=== PATIENT | female | born 1975 ===

== ENCOUNTER 2018-04-18 09:19 | Inpatient (IN) | payer BC, MEDICAID ==
[2018-04-18 09:25] VITALS: BMI 27.4
[2018-04-18] MEDS ORDERED: Sodium Chloride 0.9% 1,000 ML IV ONE (10:04)
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
[2018-04-18] MEDS ORDERED: Sodium Chloride 0.9% 1,000 ML ONE (10:22)
[2018-04-18 10:33] LABS: BASO % 0.3 % (0.0-2.0); EOS % 0.4 % (0.0-4.0); LYMPH # 1.2 K/uL (1.0-4.3); LYMPH % 10.3 % (20.0-40.0); MEAN CELL VOLUME 89.1 fL (81.0-99.0); MEAN CORPUSCULAR HEMOGLOBIN 30.8 pg (27.0-31.0); MEAN CORPUSCULAR HGB CONC 34.5 g/dL (33.0-37.0); MEAN PLATELET VOLUME 9.1 fL (7.2-11.7); MONO # 0.5 K/uL (0.0-0.8); MONO % 4.4 % (0.0-10.0); NEUT # 9.6 K/uL (1.8-7.0); NEUT % 84.6 % (50.0-75.0); RBC 4.56 Mil/uL (3.80-5.20); RED CELL DISTRIBUTION WIDTH 13.1 % (11.5-14.5); WHITE BLOOD COUNT 11.4 K/uL (4.8-10.8)
[2018-04-18 10:48] LABS: ALB/GLOB RATIO 1.1 (1.0-2.1); ALBUMIN 3.9 g/dL (3.5-5.0); ALT/SGPT 36 U/L (9-52); AST/SGOT 30 U/L (14-36); BLOOD UREA NITROGEN 18 mg/dL (7-17); CALCIUM 8.8 mg/dl (8.6-10.4); GFR AFRICAN-AMERICAN > 60; GFR NON-AFRICAN AMERICAN > 60
--- NOTE | 2018-04-18 11:46 | CT ---
PROCEDURE: CT HEAD WITHOUT CONTRAST. HISTORY: pain COMPARISON: None available. TECHNIQUE: Axial computed tomography images were obtained through the head/brain without intravenous contrast. Radiation dose: Total exam DLP = 796.51 mGy-cm. This CT exam was performed using one or more of the following dose reduction techniques: Automated exposure control, adjustment of the mA and/or kV according to patient size, and/or use of iterative reconstruction technique. FINDINGS: HEMORRHAGE: No intracranial hemorrhage. BRAIN: Normal lee-white matter differentiation and density are appreciated throughout the cerebrum and cerebellum with the brainstem appearing unremarkable as well. There is no mass effect. There is no suspicious extra-axial fluid collection and the midline brain anatomy appears diffusely unremarkable. VENTRICLES: Unremarkable. No hydrocephalus. CALVARIUM: Unremarkable. PARANASAL SINUSES: Unremarkable as visualized. No significant inflammatory changes. MASTOID AIR CELLS: Unremarkable as visualized. No inflammatory changes. OTHER FINDINGS: None. IMPRESSION: Unremarkable unenhanced head CT.
[2018-04-18 11:49] LABS: HCG,QUALITATIVE URINE NEGATIVE (NEGATIVE)
[2018-04-18 11:55] LABS: SQUAMOUS EPITHIAL 1 /hpf (0-5); URINE BILIRUBIN NEGATIVE (NEGATIVE); URINE BLOOD NEGATIVE (NEGATIVE); URINE CLARITY Hazy (Clear); URINE COLOR Yellow (YELLOW); URINE GLUCOSE (UA) NORMAL (Normal); URINE LEUKOCYTE ESTERASE NEG Leu/uL (Negative); URINE PROTEIN NEGATIVE (NEGATIVE); URINE UROBILINOGEN NORMAL mg/dL (0.2-1.0)
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
[2018-04-19] MEDS ORDERED: Gadodiamide 287 mg/ml 20 ml IV ONE (09:15)
--- NOTE | 2018-04-19 10:50 | MRI ---
PROCEDURE: MRI BRAIN WITH AND WITHOUT CONTRAST HISTORY: concussions COMPARISON: Unenhanced head CT 04/18/2018. TECHNIQUE: Multiplanar, multisequence MR images of the brain were obtained with and without intravenous contrast enhancement. FINDINGS: HEMORRHAGE: None DWI: No evidence of an acute or early subacute infarction. BRAIN PARENCHYMA: There is a solitary punctate nonenhancing long TR hyperintensity of the right parietal lobe of uncertain origin and clinical significance. The remainder of the white matter above below the tentorium is normal in signal including the corpus callosum. Normal corticomedullary differentiation is appreciated throughout and there is no mass effect or suspicious extra-axial fluid collection identified. Midline brain and appears within normal limits throughout. Craniocervical junction is intact. ENHANCEMENT: No abnormal intracranial enhancement. VENTRICLES: Unremarkable. No hydrocephalus. CRANIUM: Unremarkable. ORBITS: Grossly unremarkable. PARANASAL SINUSES/MASTOIDS: Clear VASCULAR SYSTEM: Skull base flow voids intact. OTHER FINDINGS: None . IMPRESSION: A solitary punctate long TR hyperintensities identified in the right parietal lobe of uncertain origin and significance. No additional signal abnormality is seen throughout the brain and there is no abnormal intracranial enhancement evident either.
--- NOTE | 2018-04-19 13:42 | CP.PCM.PN ---
Subjective - Date & Time of Evaluation Date of Evaluation: 04/19/18 Time of Evaluation: 13:40 - Subjective Subjective: CHIEF COMPLAINTS TODAY : Patient is still complaining of headache dizziness especially on ambulation. ROS. HEENT : N. Resp : No cough, wheezing ,pleuritic CP ,or hemoptysis Cardio : No anginal CP, PND, orthopnea, palpitation GI : No abd.pain, n/v ,diarrhea or GI bleeding . 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 Musculoskel : No joint swelling , Derm : No rash Psych : Normal affect. Ext : No swelling ,calf pain PE. Pt. is alert awake in no distress. V.S As noted in the chart Head ,ear nose,throat and eyes : Normal. Neck : Supple with normal carotids. Lungs: Clear air entry. Heart : S1 & S2 normal with S4. No murmur. Abd : Soft non tender with normal bowel sounds. Neuro : Moves all ext. with no localized deficit. Ext : No edema with intact pulses.Non tender calves Derm : No rashes or decubitus ulcer. LABS/RADIOLOGY: MRI of the brain does not show any acute pathology ASSESSMENT/PLAN : Cerebral concussion, still symptomatic observe for another 24 hours. Objective - Vital Signs/Intake and Output Vital Signs (last 24 hours): Temp Pulse Resp BP Pulse Ox 98.2 F 61 20 115/71 97 04/19/18 08:28 04/19/18 08:28 04/19/18 08:28 04/19/18 08:28 04/19/18 08:28 Intake and Output: 04/19/18 04/19/18 11:59 23:59 Intake Total 750 Balance 750 - Medications Medications: Current Medications Acetaminophen (Tylenol 325mg Tab) 650 mg PO Q6 PRN PRN Reason: Headache Dextrose (Dextrose 5% In Water 1000 Ml) 1,000 mls @ 100 mls/hr IV .Q10H [facility] Last Admin: 04/19/18 04:09 Dose: Not Given - Labs Labs: 04/18/18 10:29 04/18/18 10:29
[2018-04-20 00:25] VITALS: RESP 20
--- NOTE | 2018-04-20 03:07 | CARD ---
APPROVED REPORT EKG Measurement Heart [id number] <Conclusion> Normal sinus rhythm Normal ECG
--- NOTE | 2018-04-20 14:21 | CP.PCM.PN ---
Subjective - Date & Time of Evaluation Date of Evaluation: 04/20/18 Time of Evaluation: 14:20 - Subjective Subjective: Patient is still complaining of headache dizziness especially on ambulation. ROS. HEENT : N. Resp : No cough, wheezing ,pleuritic CP ,or hemoptysis Cardio : No anginal CP, PND, orthopnea, palpitation GI : No abd.pain, n/v ,diarrhea or GI bleeding . RADIO RECORDER : No focal deficit. Musculoskel : No joint swelling , Derm : No rash Psych : Normal affect. Ext : No swelling ,calf pain PE. Pt. is alert awake in no distress. V.S As noted in the chart Head ,ear nose,throat and eyes : Normal. Neck : Supple with normal carotids. Lungs: Clear air entry. Heart : S1 & S2 normal with S4. No murmur. Abd : Soft non tender with normal bowel sounds. Neuro : Moves all ext. with no localized deficit. Ext : No edema with intact pulses.Non tender calves Derm : No rashes or decubitus ulcer. LABS/RADIOLOGY: MRI of the brain does not show any acute pathology ASSESSMENT/PLAN : Cerebral concussion, still symptomatic observe for another 24 hours. Objective - Vital Signs/Intake and Output Vital Signs (last 24 hours): Temp Pulse Resp BP Pulse Ox 98.3 F 60 20 113/71 99 04/20/18 00:21 04/20/18 00:21 04/20/18 00:21 04/20/18 00:21 04/20/18 00:21 Intake and Output: 04/20/18 04/20/18 11:59 23:59 Intake Total 1160 Balance 1160 - Medications Medications: Current Medications Acetaminophen (Tylenol 325mg Tab) 650 mg PO Q6 PRN PRN Reason: Headache Last Admin: 04/20/18 00:35 Dose: 650 mg Dextrose (Dextrose 5% In Water 1000 Ml) 1,000 mls @ 100 mls/hr IV .Q10H [facility] Last Admin: 04/20/18 12:00 Dose: Not Given Pneumococcal Polyvalent Vaccine (Pneumovax 23 Vaccine) 0.5 ml IM .ONCE ONE Stop: 04/21/18 10:01 - Labs Labs: 04/18/18 10:29 04/18/18 10:29
[2018-04-21] MEDS ORDERED: Pneumococcal 23-Valent Vaccine IM ONE (10:00)
--- NOTE | 2018-04-21 15:34 | CP.PCM.PN ---
Subjective - Date & Time of Evaluation Date of Evaluation: 04/21/18 Time of Evaluation: 15:32 - Subjective Subjective: Chart reviewed and blood test results noted. Discussed with the nurse, patient is still feeling very lightheaded on walking. As per the physical therapy patient will need rehab. We will arrange for the rehab on Sunday Objective - Vital Signs/Intake and Output Vital Signs (last 24 hours): Temp Pulse Resp BP Pulse Ox 98 F 60 20 101/64 97 04/20/18 23:56 04/20/18 23:56 04/20/18 23:56 04/20/18 23:56 04/20/18 23:56 Intake and Output: 04/21/18 04/21/18 11:59 23:59 Intake Total 1250 Balance 1250 - Medications Medications: Current Medications Acetaminophen (Tylenol 325mg Tab) 650 mg PO Q6 PRN PRN Reason: Headache Last Admin: 04/21/18 12:46 Dose: 650 mg - Labs Labs: 04/18/18 10:29 04/18/18 10:29
--- NOTE | 2018-04-22 14:30 | CP.PCM.PN ---
Subjective - Date & Time of Evaluation Date of Evaluation: 04/22/18 Time of Evaluation: 14:29 - Subjective Subjective: Patient is still complaining of headache dizziness especially on ambulation. ROS. HEENT : N. Resp : No cough, wheezing ,pleuritic CP ,or hemoptysis Cardio : No anginal CP, PND, orthopnea, palpitation GI : No abd.pain, n/v ,diarrhea or GI bleeding . 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 Musculoskel : No joint swelling , Derm : No rash Psych : Normal affect. Ext : No swelling ,calf pain PE. Pt. is alert awake in no distress. V.S As noted in the chart Head ,ear nose,throat and eyes : Normal. Neck : Supple with normal carotids. Lungs: Clear air entry. Heart : S1 & S2 normal with S4. No murmur. Abd : Soft non tender with normal bowel sounds. Neuro : Moves all ext. with no localized deficit. Ext : No edema with intact pulses.Non tender calves Derm : No rashes or decubitus ulcer. LABS/RADIOLOGY: MRI of the brain does not show any acute pathology ASSESSMENT/PLAN : patient will need short- term rehab. Objective - Vital Signs/Intake and Output Vital Signs (last 24 hours): Temp Pulse Resp BP Pulse Ox 98.2 F 70 20 96/59 L 98 04/22/18 07:21 04/22/18 07:21 04/22/18 07:21 04/22/18 07:21 04/22/18 07:21 Intake and Output: 04/22/18 04/22/18 11:59 23:59 Intake Total 200 Balance 200 - Medications Medications: Current Medications Acetaminophen (Tylenol 325mg Tab) 650 mg PO Q6 PRN PRN Reason: Headache Last Admin: 04/22/18 10:50 Dose: 650 mg - Labs Labs: 04/18/18 10:29 04/18/18 10:29
--- NOTE | 2018-04-23 13:43 | CP.PCM.PN ---
Subjective - Date & Time of Evaluation Date of Evaluation: 04/23/18 Time of Evaluation: 13:42 - Subjective Subjective: Patient is still complaining of headache dizziness especially on ambulation. ROS. HEENT : N. Resp : No cough, wheezing ,pleuritic CP ,or hemoptysis Cardio : No anginal CP, PND, orthopnea, palpitation GI : No abd.pain, n/v ,diarrhea or GI bleeding . 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 Musculoskel : No joint swelling , Derm : No rash Psych : Normal affect. Ext : No swelling ,calf pain PE. Pt. is alert awake in no distress. V.S As noted in the chart Head ,ear nose,throat and eyes : Normal. Neck : Supple with normal carotids. Lungs: Clear air entry. Heart : S1 & S2 normal with S4. No murmur. Abd : Soft non tender with normal bowel sounds. Neuro : Moves all ext. with no localized deficit. Ext : No edema with intact pulses.Non tender calves Derm : No rashes or decubitus ulcer. LABS/RADIOLOGY: MRI of the brain does not show any acute pathology ASSESSMENT/PLAN : patient will need short- term rehab. Objective - Vital Signs/Intake and Output Vital Signs (last 24 hours): Temp Pulse Resp BP Pulse Ox 98.3 F 64 20 102/62 98 04/23/18 08:35 04/23/18 08:35 04/23/18 08:35 04/23/18 08:35 04/23/18 08:35 Intake and Output: 04/23/18 04/23/18 11:59 23:59 Intake Total 240 Balance 240 - Medications Medications: Current Medications Acetaminophen (Tylenol 325mg Tab) 650 mg PO Q6 PRN PRN Reason: Headache Last Admin: 04/22/18 10:50 Dose: 650 mg - Labs Labs: 04/18/18 10:29 04/18/18 10:29
[2018-04-23] MEDS ORDERED: Apap-Butalbital-Caffeine 325-50-40mg Tab PO STA (18:15)
[2018-04-23] MEDS ORDERED: Apap-Butalbital-Caffeine 325-50-40mg Tab PO PRN (18:15)
[2018-04-24] MEDS: Sodium Chloride 0.9% 1,000 ML IV SCH ×2 (08:40→17:45)
--- NOTE | 2018-04-24 13:54 | CP.PCM.PN ---
Subjective - Date & Time of Evaluation Date of Evaluation: 04/24/18 Time of Evaluation: 13:53 - Subjective Subjective: Patient is still complaining of headache dizziness especially on ambulation. ROS. HEENT : N. Resp : No cough, wheezing ,pleuritic CP ,or hemoptysis Cardio : No anginal CP, PND, orthopnea, palpitation GI : No abd.pain, n/v ,diarrhea or GI bleeding . 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 Musculoskel : No joint swelling , Derm : No rash Psych : Normal affect. Ext : No swelling ,calf pain PE. Pt. is alert awake in no distress. V.S As noted in the chart Head ,ear nose,throat and eyes : Normal. Neck : Supple with normal carotids. Lungs: Clear air entry. Heart : S1 & S2 normal with S4. No murmur. Abd : Soft non tender with normal bowel sounds. Neuro : Moves all ext. with no localized deficit. Ext : No edema with intact pulses.Non tender calves Derm : No rashes or decubitus ulcer. LABS/RADIOLOGY: MRI of the brain does not show any acute pathology ASSESSMENT/PLAN : patient will need short- term rehab. AWAITING NEURO EVAL Objective - Vital Signs/Intake and Output Vital Signs (last 24 hours): Temp Pulse Resp BP Pulse Ox 98.6 F 64 20 108/70 99 04/24/18 08:00 04/24/18 08:00 04/24/18 08:00 04/24/18 08:00 04/24/18 08:00 Intake and Output: 04/24/18 04/24/18 11:59 23:59 Intake Total 200 Balance 200 - Medications Medications: Current Medications Acetaminophen (Tylenol 325mg Tab) 650 mg PO Q6 PRN PRN Reason: Headache Last Admin: 04/23/18 15:01 Dose: 650 mg Acetaminophen/Butalbital/Caffeine (Fioricet) 1 tab PO Q4 PRN PRN Reason: Pain, severe (8-10) Sodium Chloride (Sodium Chloride 0.9%) 1,000 mls @ 100 mls/hr IV .Q10H [facility] Last Admin: 04/24/18 08:40 Dose: 100 mls/hr Meclizine HCl (Antivert) 25 mg PO QD7 [facility] Last Admin: 04/23/18 18:39 Dose: 25 mg - Labs Labs: 04/18/18 10:29 04/18/18 10:29
[2018-04-24 15:20] LABS: FOLATE > 20.0 ng/mL
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
[2018-04-24] MEDS ORDERED: Iodixanol 320 MG/ML 100 ML BOTTLE IV ONE (20:05)
[2018-04-25] MEDS: Sodium Chloride 0.9% 1,000 ML IV SCH ×2 (03:45→14:30)
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
--- NOTE | 2018-04-25 11:23 | CT ---
PROCEDURE: CTA HEAD AND NECK WITH CONTRAST HISTORY: r/o vertebral artery dissection COMPARISON: None available. TECHNIQUE: Initial noncontrast head CT was performed. Subsequently, CT angiogram of the head and neck were performed after the intravenous administration of 80 mL of Omnipaque 350. Contiguous 1.5mm thick images were obtained in the axial plane of the neck. 2-D coronal and sagittal MPR images were obtained. Imaging postprocessing was performed with 3-D images also obtained. A delayed contrast head CT was also obtained. This CT exam was performed using one or more of the following dose reduction techniques: Automated exposure control, adjustment of the mA and/or kV according to patient size, and/or use of iterative reconstruction technique. Contrast dose: 100 mL Visipaque 320 Radiation dose: Total exam DLP = 550.30 mGy-cm. FINDINGS: HEAD: Right: The intracranial internal carotid artery, and anterior and middle cerebral arteries are widely patent. Left: The intracranial internal carotid artery, and anterior and middle cerebral arteries are widely patent. Posterior circulation: The visualized intracranial vertebral arteries, basilar artery and posterior cerebral arteries are widely patent. Ther is no endoluminal filling defect to suggest thrombus. There is no intracranial saccular aneurysm. There is no abnormal enhancement on the postcontrast CT. NECK: There is a three vessel aortic arch. There is no stenosis at the origins of the great vessels at the level of the aortic arch. Right Carotid: On the right, the common carotid, internal carotid and external carotid arteries are widely patent. There is no hemodynamically significant stenosis in the internal carotid artery by NASCET criteria. Left Carotid: On the left, the common carotid, internal carotid and external carotid arteries are widely patent. There is no hemodynamically significant stenosis in the internal carotid artery by NASCET criteria. The vertebral arteries are widely patent. The right vertebral artery is hypoplastic, an anatomic variant. The visualized soft tissues of the neck are normal. The visualized brain and cervical spine are within normal limits. The lung apices are clear. IMPRESSION: 1. The right vertebral artery is hypoplastic, an anatomic variant. No definite evidence for vertebral artery dissection. 2. No evidence of occlusion, stenosis, intra arterial thrombus or saccular aneurysm. 3. No evidence of hemodynamically significant stenosis in the internal carotid arteries. A preliminary report was provided by [facility].
--- NOTE | 2018-04-25 13:56 | CP.PCM.PN ---
Subjective - Date & Time of Evaluation Date of Evaluation: 04/25/18 Time of Evaluation: 13:55 - Subjective Subjective: Patient is still complaining of headache dizziness especially on ambulation. ROS. HEENT : N. Resp : No cough, wheezing ,pleuritic CP ,or hemoptysis Cardio : No anginal CP, PND, orthopnea, palpitation GI : No abd.pain, n/v ,diarrhea or GI bleeding . MANAGER GENERATION : No focal deficit. Musculoskel : No joint swelling , Derm : No rash Psych : Normal affect. Ext : No swelling ,calf pain PE. Pt. is alert awake in no distress. V.S As noted in the chart Head ,ear nose,throat and eyes : Normal. Neck : Supple with normal carotids. Lungs: Clear air entry. Heart : S1 & S2 normal with S4. No murmur. Abd : Soft non tender with normal bowel sounds. Neuro : Moves all ext. with no localized deficit. Ext : No edema with intact pulses.Non tender calves Derm : No rashes or decubitus ulcer. LABS/RADIOLOGY: MRI of the brain does not show any acute pathology. CTA of the neck shows no vascular injury or stenosis ASSESSMENT/PLAN : patient will need short- term rehab. Valium and aspirin as per neurology Objective - Vital Signs/Intake and Output Vital Signs (last 24 hours): Temp Pulse Resp BP Pulse Ox 98.3 F 68 20 101/63 100 04/25/18 08:14 04/25/18 08:14 04/25/18 08:14 04/25/18 08:14 04/25/18 08:14 Intake and Output: 04/25/18 04/25/18 11:59 23:59 Intake Total 1000 Balance 1000 - Medications Medications: Current Medications Acetaminophen (Tylenol 325mg Tab) 650 mg PO Q6 PRN PRN Reason: Headache Last Admin: 04/23/18 15:01 Dose: 650 mg Aspirin (Ecotrin) 81 mg PO DAILY [facility] Last Admin: 04/25/18 10:41 Dose: 81 mg Diazepam (Valium) 2 mg PO Q8 PRN PRN Reason: Dizziness Sodium Chloride (Sodium Chloride 0.9%) 1,000 mls @ 100 mls/hr IV .Q10H [facility] Last Admin: 04/25/18 03:45 Dose: Not Given Meclizine HCl (Antivert) 25 mg PO QD7 [facility] Last Admin: 04/23/18 18:39 Dose: 25 mg - Labs Labs: 04/18/18 10:29 04/18/18 10:29
[2018-04-25 16:55] VITALS: BP 123/74; PULSE 71; TEMP 98.4; O2SAT 99
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
== END 2018-04-25 18:35 | disposition home or self-care (01) | DRG 149 ==
LOC: C.ER 09:19 → C.3T 14:50 → INTOOBSV 14:50 → UNDOADMOB 14:50 → OBSVTOIN 16:31 → INTOOBSV 16:31 → C.3T 04-21 16:31 → OBSVTOIN 04-21 16:31 → C.3T 04-25 08:28
PROVIDERS: ADMIT Internal Medicine Cardiovascular Disease; ATTEND Internal Medicine Cardiovascular Disease
DX: R42 Dizziness and giddiness (principal); H55.00 Unspecified nystagmus